=== PATIENT | male | born 2000 | race Caucasian/White ===

== ENCOUNTER 2018-08-07 00:53 | Emergency (ER) | payer OTHER ==
[~2018-08-07] VITALS: Ht 195.6 cm; Wt 100.0 kg
[2018-08-07 01:02] VITALS: TEMP 97.8
[2018-08-07 02:55] VITALS: BP 146/87; PULSE 83
== END 2018-08-07 02:55 | disposition home or self-care (01) ==
LOC: COL.ER 00:53 → EDBD 00:54 → COL.ER 00:54
DX: F10.129 Alcohol abuse with intoxication, unspecified (principal); R11.2 Nausea with vomiting, unspecified